=== PATIENT | female | born 1980 | race Caucasian/White ===

== ENCOUNTER 2019-10-09 13:29 | Emergency (ER) | payer OTHER, SELFPAY ==
[2019-10-09 13:36] VITALS: BP 146/72; PULSE 100; RESP 16; TEMP 36.6; O2SAT 99; BMI 25.1
--- NOTE | 2019-10-09 18:02 | DI.CT.S_ITS ---
PROCEDURE: CT HEAD/BRAIN WO CON INDICATIONS: Headache x 30+ days, worsening. TECHNIQUE: Noncontrast 4.5 mm thick angled axial sections acquired from the foramen magnum to the vertex, with coronal and sagittal reformats. For radiation dose reduction, the following was used: automated exposure control, adjustment of mA and/or kV according to patient size. COMPARISON: None. FINDINGS: Image quality: Excellent. CSF spaces: Basal cisterns are patent. No extra-axial fluid collections. Ventricles are normal in size and shape. Brain: No midline shift. No intracranial masses or hemorrhage. Vickers-white matter interface is normal. Small calcifications are noted at the pineal gland. Skull and face: Calvarium and visualized facial bones are intact, without suspicious lesions. Sinuses: Visualized sinuses and mastoids are clear. IMPRESSION: 1. No acute intracranial findings. No finding to explain patient's headache. Dictated by: Maribeth Stephenson M.D. on 10/09/2019 at 18:18 Approved by: Maribeth Stephenson M.D. on 10/09/2019 at 18:21
--- NOTE | 2019-10-09 18:09 | ED_ITS ---
HPI - Extremity Injury (Upper) <JUAN PABLO Valdovinos - Last Filed: 10/09/19 21:18> General Chief Complaint: Extremity Injury, Upper Stated Complaint: facial/neck/arms/headache x30 days Time Seen by Provider: 10/09/19 17:37 History of Present Illness HPI narrative: 39yo female presents with a history of chronic neck pain for which she receives acupuncture, chiropractic therapy, and massage therapy for, presents emergency department complaining of a dull aching right-sided headache she describes as a 4/10 for the past 36 days. She states the pain has increased over the past 3 days at a 6/10. Patient denies any vision changes but states she occasionally gets dizzy when she looks down. She also describes associated nausea for the past 3 days. Five days ago she developed some tingling in her right 4th and 5th finger, patient reports this is worse when she transitions from lying to sitting, also reports that is worse when she swings her arms while working. She states she has had this in the past and it is usually relieved with acupuncture. She believes this may be connected to issues in the past that she has had with her neck. However, she also some numbness and tingling to her left wrist and forearm as well. She states the pain is worse when she sits up and better when she lays down. She has not been able to have her chiropractor, massage, acupuncture therapy since the . Patient reports she has had a recent cardiac workup with including an echo and a stress test over the past few weeks which have come back negative for anything concerning. Related Data Previous Rx's Medication Instructions Recorded prednisone 20 mg PO DAILY 5 Days #5 tab 10/09/19 Allergies Allergy/AdvReac Type Severity Reaction Status Date / Time No Known Drug Allergies Allergy Verified 10/09/19 18:31 Review of Systems <JUAN PABLO Valdovinos - Last Filed: 10/09/19 21:18> Review of Systems Narrative: REVIEW OF SYSTEMS: GENERAL: Denies fever or chills. HENT: No head trauma. NECK: Reports, neck pain, see HPI. EYES: No double vision or vision loss. CARDIOVASCULAR: No chest pain or syncope. RESPIRATORY: No shortness of breath or cough. GASTROINTESTINAL: Reports nausea. Denies vomiting or diarrhea, see HPI. GENITOURINARY: No flank pain or dysuria. MUSCULOSKELETAL: Complains of numbness and tingling in hands,, see HPI. INTEGUMENTARY: No rash, lesions, or pruritus. NEURO: Reports numbness and tingling hands, see HPI.. PSYCH: No behavior or mood changes. Patient History <JUAN PABLO Valdovinos - Last Filed: 10/09/19 21:18> Medical History Chronic neck pain (Acute) Social History Smoking Status: Never smoker Smoking Status: Never smoker alcohol intake frequency: holidays/special occasions only Substance Use Type: does not use Exam <JUAN PABLO Valdovinos - Last Filed: 10/09/19 21:18> Initial Vital Signs Initial Vital Signs: Vital Signs Temperature 97.8 F 10/09/19 13:36 Pulse Rate 100 H 10/09/19 13:36 Respiratory Rate 16 10/09/19 13:36 Blood Pressure 146/72 H 10/09/19 13:36 Pulse Oximetry 99 10/09/19 13:36 PHYSICAL EXAMINATION: GENERAL: Well groomed, alert, and cooperative. Answers questions promptly and appropriately. Vital signs noted. HENT: Normocephalic, atraumatic. Ear canals patent. Oral mucosa is pink and moist. EYES: PERRLA, EOMI, Conjunctiva pink, sclera white, no periorbital swelling. NECK: Paraspinal vertebral muscle tenderness noted to upper aspect of cervical area. No spinal tenderness. Patient has full range of motion of neck without pain. No nuchal rigidity. CARDIOVASCULAR: S1 and S2 sounds normal. Regular rate and rhythm, no murmurs, clicks, or bruits. No pedal edema. RESPIRATORY: Normal respiratory rate, trachea midline, airway patent. No stridor, nasal flaring or accessory muscle use. Lungs are clear in all rivera without wheeze, rhonchi, or crackles. GASTROINTESTINAL: Bowel sounds normoactive. Abdomen is soft and non-tender. No organomegaly. MUSCULOSKELETAL: Patient reports increased symptoms of tingling and right and left arm when transitioning from lying to sitting. She also reports worsening symptoms when she swings her arms while walking. Equal caramel maker strength bilaterally, equal forearm and deltoid strength bilaterally. Normal gait and coordination. Equal tone and mass bilaterally. EXTREMITIES: CMS intact. Moves all extremities. SKIN: Warm, dry, soft, appropriate color for ethnicity. No lesions, rashes, or wounds. NEURO: Alert and Oriented X 3. Good coordination. No ataxia, or sensory deficits, or cognitive issues. PSYCH: Appropriate affect and mood. <Gama Mendiola DO - Last Filed: 10/09/19 23:01> Initial Vital Signs Initial Vital Signs: Vital Signs Temperature 97.8 F 10/09/19 13:36 Pulse Rate 100 H 10/09/19 13:36 Respiratory Rate 16 10/09/19 13:36 Blood Pressure 146/72 H 10/09/19 13:36 Pulse Oximetry 99 10/09/19 13:36 Course <JUAN PABLO Valdovinos - Last Filed: 10/09/19 21:18> Course Course Narrative: 1900: Patient reports significantly improved pain, states her headache has improved to a 2-3/10. Patient is able to walk around without difficult pain. She states the tingling in her hand has improved while lying down but still remains. Orders Ordered: ED Orders 10/09/19 18:02 CT head/brain wo con Stat 10/09/19 18:38 Complete Blood Count AUTO DIFF Stat Comprehensive Metabolic Panel Stat Troponin & CK Cardiac Panel Stat Discontinued Medications Diphenhydramine HCl (Benadryl) 25 mg IV NOW ONE Stop: 10/09/19 18:03 Last Admin: 10/09/19 18:45 Dose: 25 mg Documented by: BRANDON Sodium Chloride (Normal Saline 0.9%) 1,000 mls @ 1,000 mls/hr IV BOLUS ONE Stop: 10/09/19 19:01 Last Infusion: 10/09/19 20:06 Dose: 0 mls/hr Documented by: Admin: 10/09/19 18:44 Dose: 1,000 mls/hr Documented by: BRANDON Ketorolac Tromethamine (Toradol) 30 mg IV NOW ONE Stop: 10/09/19 18:03 Last Admin: 10/09/19 18:44 Dose: 30 mg Documented by: BRANDON Metoclopramide HCl (Reglan) 10 mg IV NOW ONE Stop: 10/09/19 18:05 Last Admin: 10/09/19 18:44 Dose: 10 mg Documented by: BRANDON Consultations Consultation #1: Patient staffed with Dr. Mendiola, discussed laboratory results, patient's symptoms, and plan of care. Vital Signs Vital signs: Vital Signs - 8 hr 10/09/19 18:47 10/09/19 20:06 Pulse Rate 67 68 Respiratory Rate 18 Blood Pressure [Left Arm] 124/72 115/67 Pulse Oximetry 100 98 <Gama Mendiola DO - Last Filed: 10/09/19 23:01> Orders Ordered: ED Orders 10/09/19 18:02 CT head/brain wo con Stat 10/09/19 18:38 Complete Blood Count AUTO DIFF Stat Comprehensive Metabolic Panel Stat Troponin & CK Cardiac Panel Stat Discontinued Medications Diphenhydramine HCl (Benadryl) 25 mg IV NOW ONE Stop: 10/09/19 18:03 Last Admin: 10/09/19 18:45 Dose: 25 mg Documented by: BRANDON Sodium Chloride (Normal Saline 0.9%) 1,000 mls @ 1,000 mls/hr IV BOLUS ONE Stop: 10/09/19 19:01 Last Infusion: 10/09/19 20:06 Dose: 0 mls/hr Documented by: Admin: 10/09/19 18:44 Dose: 1,000 mls/hr Documented by: BRANDON Ketorolac Tromethamine (Toradol) 30 mg IV NOW ONE Stop: 10/09/19 18:03 Last Admin: 10/09/19 18:44 Dose: 30 mg Documented by: BRANDON Metoclopramide HCl (Reglan) 10 mg IV NOW ONE Stop: 10/09/19 18:05 Last Admin: 10/09/19 18:44 Dose: 10 mg Documented by: BRANDON Vital Signs Vital signs: Vital Signs - 8 hr 10/09/19 18:47 10/09/19 20:06 Pulse Rate 67 68 Respiratory Rate 18 Blood Pressure [Left Arm] 124/72 115/67 Pulse Oximetry 100 98 MDM - Extremity Injury (Upper) <JUAN PABLO Valdovinos - Last Filed: 10/09/19 21:18> Medical Records Attestation: I reviewed the patient's medical records. Lab Data Attestation: I reviewed the patient's lab results. Result diagrams: 10/09/19 18:38 10/09/19 18:38 Labs: Lab Results 10/09/19 10/09/19 Range/Units 18:38 18:38 WBC 6.9 (4.5-11.0) X10^3/uL RBC 4.68 (4.0-5.2) X10^6/uL Hgb 14.5 (12.0-16.0) g/dL Hct 41.7 (36-46) % MCV 89.0 (80-100) fL MCH 30.9 (26-34) PG MCHC 34.7 (30-36) % RDW 13.1 (11.6-14.8) % Plt Count 208 (150-400) X10^3/uL Neut % (Auto) 73.8 (50-75) % Lymph % (Auto) 19.5 L (25-40) % [place] % (Auto) 5.1 (3-14) % Eos % (Auto) 1.2 L (2-4) % Baso % (Auto) 0.4 (0-2) % Neut # (Auto) 5100 (6211-4271) /uL Lymph # (Auto) 1300 (3341-4015) /uL [place] # (Auto) 400 (0-900) /uL Eos # (Auto) 100 (0-450) /uL Baso # (Auto) 0 (0-100) /uL Sodium 140 (137-145) mmol/L Potassium 3.9 (3.4-5.1) mmol/L Chloride 103 (98-107) mmol/L Carbon Dioxide 30 (22-32) mmol/L BUN 13 (7-17) mg/dL Creatinine 0.65 (0.52-1.04) mg/dL Estimated GFR > 60.0 (>60) mL/min BUN/Creatinine Ratio 20.0 (6-22) Glucose 104 H (70-100) mg/dL Calcium 9.6 (8.4-10.2) mg/dL Total Bilirubin 0.4 (0.2-1.3) mg/dL AST 30 (14-36) IU/L ALT 27 (<35) IU/L Alkaline Phosphatase 47 (38-126) U/L Total Creatine Kinase 42 (30-135) U/L CK-MB (CK-2) TNP CK-MB (CK-2) Rel Index TNP Troponin I < 0.012 (0.01-0.034) ng/mL Total Protein 7.5 (6.3-8.2) g/dL Albumin 4.7 (3.5-5.0) g/dL Globulin 2.8 (1.7-4.1) g/dL Albumin/Globulin Ratio 1.7 (1.0-2.8) Imaging Data Head CT : Radiologist's Impression: [address] [address] [address] Scan Report Signed Patient: Katt Rhodes MMR#: [id number] : 1980Acct:[id number] Age/Sex: 39 / FDate of Service: 10/09/19 Loc: ED Accession Number: [id number] Procedure: CT head/brain wo con Ordering Provider: Marisol Wolf PROCEDURE: CT HEAD/BRAIN WO CON INDICATIONS: Headache x 30+ days, worsening. TECHNIQUE: Noncontrast 4.5 mm thick angled axial sections acquired from the foramen magnum to the vertex, with coronal and sagittal reformats. For radiation dose reduction, the following was used: automated exposure control, adjustment of mA and/or kV according to patient size. COMPARISON: None. FINDINGS: Image quality: Excellent. CSF spaces: Basal cisterns are patent. No extra-axial fluid collections. Ventricles are normal in size and shape. Brain: No midline shift. No intracranial masses or hemorrhage. Vickers-white matter interface is normal. Small calcifications are noted at the pineal gland. Skull and face: Calvarium and visualized facial bones are intact, without suspicious lesions. Sinuses: Visualized sinuses and mastoids are clear. IMPRESSION: 1. No acute intracranial findings. No finding to explain patient's headache. Dictated by: Maribeth Stephenson M.D. on 10/09/2019 at 18:18 Approved by: Maribeth Stephenson M.D. on 10/09/2019 at 18:21 [facility] Narrative Medical decision making narrative: 39-year-old female with history of chronic neck pain presents emergency department for a headache and and sensation in her bilateral upper arms. Patient's headache was resolved after administration of Toradol, Benadryl, Re glan and fluids. Patient's head CT was negative, labs were non-remarkable including troponin. Patient had tenderness to paraspinal vertebral cervical muscles. Numbness and tingling is worse with various movements. I suspect patient's symptoms are most likely caused from a pinched nerve versus cervical/thoracic outlet syndrome, versus DDD, muscle spasms indoor neck tension due to worsening symptoms with was unchanged and while swinging arms when walking and lack of other concerning features such as extremity weakness. Less likely CVA due to intact neuro exam without focal changes, equal caramel maker strength in upper forearm strength bilaterally, patient reports this has happened in the past and this was resolved with steroid injections in her spine. Less likely ACS etiology due to lack of other symptoms such as chest pain, troponin was negative, and lower risk factors. Patient did report she had a recent echo and stress test which was non concerning in the past few weeks while this does not rule out ACS, a clear echo and stress test may further suggest that her limb sensation are more neurologic in nature versus cardiac. Less likely cauda equina due to lack of loss of bowel or bladder control, no leg weakness, no saddle paresthesias. Less likely acute cranial etiology due to resolution of symptoms after medication, lack of neurological symptoms, ongoing headache for the past 30+ da ys without neurological changes, and negative head CT. After discussion with patient about benefits and risks of muscle relaxers versus prednisone, patient opted to have a small dose of prednisone. She was encouraged to follow up with her primary care provider and orthopedic for further evaluation. Patient agreed to plan of care verbalized understanding. ED precautions given for new or worsening symptoms. <Gama Mendiola, DO - Last Filed: 10/09/19 23:01> Lab Data Labs: Lab Results 10/09/19 10/09/19 Range/Units 18:38 18:38 WBC 6.9 (4.5-11.0) X10^3/uL RBC 4.68 (4.0-5.2) X10^6/uL Hgb 14.5 (12.0-16.0) g/dL Hct 41.7 (36-46) % MCV 89.0 (80-100) fL MCH 30.9 (26-34) PG MCHC 34.7 (30-36) % RDW 13.1 (11.6-14.8) % Plt Count 208 (150-400) X10^3/uL Neut % (Auto) 73.8 (50-75) % Lymph % (Auto) 19.5 L (25-40) % [place] % (Auto) 5.1 (3-14) % Eos % (Auto) 1.2 L (2-4) % Baso % (Auto) 0.4 (0-2) % Neut # (Auto) 5100 (4565-5111) /uL Lymph # (Auto) 1300 (2998-8340) /uL [place] # (Auto) 400 (0-900) /uL Eos # (Auto) 100 (0-450) /uL Baso # (Auto) 0 (0-100) /uL Sodium 140 (137-145) mmol/L Potassium 3.9 (3.4-5.1) mmol/L Chloride 103 (98-107) mmol/L Carbon Dioxide 30 (22-32) mmol/L BUN 13 (7-17) mg/dL Creatinine 0.65 (0.52-1.04) mg/dL Estimated GFR > 60.0 (>60) mL/min BUN/Creatinine Ratio 20.0 (6-22) Glucose 104 H (70-100) mg/dL Calcium 9.6 (8.4-10.2) mg/dL Total Bilirubin 0.4 (0.2-1.3) mg/dL AST 30 (14-36) IU/L ALT 27 (<35) IU/L Alkaline Phosphatase 47 (38-126) U/L Total Creatine Kinase 42 (30-135) U/L CK-MB (CK-2) TNP CK-MB (CK-2) Rel Index TNP Troponin I < 0.012 (0.01-0.034) ng/mL Total Protein 7.5 (6.3-8.2) g/dL Albumin 4.7 (3.5-5.0) g/dL Globulin 2.8 (1.7-4.1) g/dL Albumin/Globulin Ratio 1.7 (1.0-2.8) Discharge Plan Departure Patient Disposition: Home Clinical Impression: Tingling in extremities Headache Qualifiers: Headache type: unspecified Headache chronicity pattern: acute headache Intractability: not intractable Qualified Code(s): R51 - Headache Discharge Date/Time: 10/09/19 20:17 Instructions: DI for Headache Activity Restrictions/Additional Instructions: Thank you for entrusting me with your care today. As discussed, your CT and laboratory work are non-remarkable. I am unsure of exact cause of the tingling in hearing, this may be due to muscle spasms, pinched nerve, or spinal disc irritation as in the past. This also may be contributing to her headache. After discussing the benefits and risks, I prescribed you a short course of prednisone to help reduce inflammation. I suggest following up with your primary care provider in the next 1-2 weeks for further evaluation of possible. Return emergency department for any new or worsening symptoms such as chest pain, shortness of breath, vision changes, severe headache, loss of bowel or bladder control, syncope, high fevers, or any other concerns. Prescriptions: New prednisone 20 mg tablet 20 mg PO DAILY 5 Days Qty: 5 RF: 0 Referrals: Lizzy Montemayor [Primary Care Provider] - <Gama Mendiola DO - Last Filed: 10/09/19 23:01> [facility] Dr Mendiola Co-Sign Statement: I was available for consultation during this patient's emergency department visit. This chart is signed by myself for administrative purposes only. I did not have direct contact with this patient during this visit. They were seen independently by the APC.
[2019-10-09 18:44] LABS: Add Manual Diff / Slide Review NO; Basophils Absolute Auto 0 /uL (0-100); Basophils Percent Auto 0.4 % (0-2); Eosinophils Absolute Auto 100 /uL (0-450); Eosinophils Percent Auto 1.2 % (2-4); Hematocrit 41.7 % (36-46); Hemoglobin 14.5 g/dL (12.0-16.0); Lymphocytes Absolute Auto 1300 /uL (1100-4500); Lymphocytes Percent Auto 19.5 % (25-40); Mean Corpuscular HGB Conc 34.7 % (30-36); Mean Corpuscular Hemoglobin 30.9 PG (26-34); Monocytes Absolute Auto 400 /uL (0-900); Monocytes Percent Auto 5.1 % (3-14); Neutrophils Absolute Auto 5100 /uL (1500-7000); Neutrophils Percent Auto 73.8 % (50-75); Platelet Count 208 X10^3/uL (150-400); Red Blood Cell Count 4.68 X10^6/uL (4.0-5.2); Red Cell Distribution Width 13.1 % (11.6-14.8); White Blood Cell Count 6.9 X10^3/uL (4.5-11.0)
[2019-10-09] MEDS: METOCLOPRAMIDE 10 MG/2 ML INJ IV (18:44)
[2019-10-09] MEDS: SODIUM CHLORIDE 0.9% 1,000 ML 1000 ML IV (18:44)
[2019-10-09] MEDS: KETOROLAC 60 MG/2 ML VIAL 30 MG IV (18:44)
[2019-10-09] MEDS: diphenhydrAMINE 50 MG/ML VIAL 25 MG IV (18:45)
[2019-10-09 18:47] VITALS: BP 124/72; PULSE 67; O2SAT 100
[2019-10-09 19:20] LABS: Alanine Aminotransferase 27 IU/L (<35); Albumin 4.7 g/dL (3.5-5.0); Albumin Globulin Ratio 1.7 (1.0-2.8); Alkaline Phosphatase 47 U/L (38-126); Aspartate Aminotransferase 30 IU/L (14-36); Bilirubin Total 0.4 mg/dL (0.2-1.3); Blood Urea Nitrogen 13 mg/dL (7-17); Calcium 9.6 mg/dL (8.4-10.2); Carbon Dioxide 30 mmol/L (22-32); Chloride 103 mmol/L (98-107); Creatine Kinase 42 U/L (30-135); Estimated Glomerular Filt Rate > 60.0 mL/min (>60); Globulin 2.8 g/dL (1.7-4.1); Glucose 104 mg/dL (70-100); HEMOLYSIS < 15 (0-50); Potassium 3.9 mmol/L (3.4-5.1); Sodium 140 mmol/L (137-145); Total Protein 7.5 g/dL (6.3-8.2)
[2019-10-09 19:32] LABS: Troponin I < 0.012 ng/mL (0.01-0.034)
[2019-10-09 20:06] VITALS: BP 115/67; PULSE 68; RESP 18; O2SAT 98
== END 2019-10-09 20:17 | disposition home or self-care (01) ==
PROVIDERS: Emergency Provider Nurse Practitioner; PCP Nurse Practitioner Family
DX: R20.2 Paresthesia of skin (principal); R51 Headache
CPT/HCPCS: 36415; 70450; 80053; 82550; 84484; 85025; 96361; 96374; 96375; 99284; J1200; J1885; J2765

== ENCOUNTER → 2024-03-03 07:50 | Outpatient (CLI) | payer OTHER, SELFPAY ==
--- NOTE | 2024-03-03 07:54 | DI.MG.S_ITS ---
BILATERAL DIGITAL SCREENING MAMMOGRAM 3D/2D WITH CAD: 03/03/2024 CLINICAL: Routine screening. Baseline exam. No prior exams were available for comparison. The breasts are heterogeneously dense, which may obscure small masses (category c / 51-75% glandular tissue). Current study was also evaluated with a Computer Aided Detection (CAD) system. No significant masses, calcifications, or other findings are seen in either breast. IMPRESSION: NEGATIVE There is no mammographic evidence of malignancy. A 1 year screening mammogram is recommended. Based on the Tyrer Cuzick model (a risk assessment model) the patient's lifetime risk is 11.5% and her 10 year risk is 2.1%. According to the ACR, ACS, and NCCN guidelines, an annual breast MRI exam along with mammogram is recommended if the patient's lifetime risk is 20% or greater. This exam was interpreted at Station ID: [id number]. NOTE: For mammograms, a report in lay terms will be sent to the patient. Approximately 15% of breast malignancies will not be visualized mammographically. In the management of a palpable breast mass, a negative mammogram must not discourage biopsy of a clinically suspicious lesion. Electronically Signed By: Kelsey palacios/mahad:03/03/2024 12:10:55 letter sent: Normal Exam ACR BI-RADS Category 1: Negative
== END ==
PROVIDERS: PCP Nurse Practitioner Family; Referring Provider Nurse Practitioner Family; Visit Provider Nurse Practitioner Family
DX: Z12.31 Encounter for screening mammogram for malignant neoplasm of breast (principal); R92.333 Mammographic heterogeneous density, bilateral breasts
CPT/HCPCS: 77063; 77067

== ENCOUNTER → 2025-04-27 07:48 | Outpatient (CLI) | payer OTHER, SELFPAY ==
--- NOTE | 2025-04-27 07:53 | DI.MG.S_ITS ---
MM screening mammo BI: 04/27/2025. BI-RADS: 1 CLINICAL: 44-year old female for bilateral screening mammogram. Tyrer-Cuzick lifetime risk of 14.8%. No personal or first-degree family history of breast cancer. Current reported family history of breast cancer: sister's daughter. PRIOR EXAMS 03/03/2024. MAMMOGRAPHY TECHNIQUE: 2D and 3D (tomosynthesis) digital mammographic views obtained, with additional images as needed for full coverage. Current study was also evaluated with a Computer Aided Detection (CAD) system. DENSITY C. The breasts are heterogeneously dense, which may obscure small masses. MAMMOGRAPHY FINDINGS Bilateral: No suspicious mass, asymmetry, microcalcification, or other abnormality seen. IMPRESSION: * No evidence of malignancy. RECOMMENDATIONS Bilateral * Annual screening mammography. OVERALL ASSESSMENT CATEGORY BI-RADS-1: Negative. The [employer] recommends annual screening mammography beginning at age 40 for women with average risk of breast cancer. ELECTRONICALLY SIGNED: Tena Cole M.D. on 04/27/2025 at 03:48:27 PM PT Interpreting Station ID: [id number]
== END ==
PROVIDERS: PCP Nurse Practitioner Family; Referring Provider Nurse Practitioner Family; Visit Provider Nurse Practitioner Family
DX: Z12.31 Encounter for screening mammogram for malignant neoplasm of breast (principal); R92.333 Mammographic heterogeneous density, bilateral breasts; Z80.3 Family history of malignant neoplasm of breast
CPT/HCPCS: 77063; 77067